=== PATIENT | female | born 1945 | race Caucasian/White ===

== ENCOUNTER → 2018-05-05 | Outpatient (CLI) | payer MEDICARE ==
[~2018-05-05] MED LIST: CALCIUM CARB W/1 TA1 PO; CATAPRES 0.1MG0.1 MG PO; CELEXA; COZAAR100 MG PO; DEPAKOTE 250MG250 MG PO; FORADIL AERO0.012 MG IH; FOSAMAX 70MG TA70 MG PO; KLONOPIN 1MG1 MG PO; MACROBID 1100 MG/CAP PO; NORVASC 10MG10 MG PO; OXYGEN; PRINIVIL5 MG PO; PROVENTIL0.09 MG/A1 IH; REMERON30 MG PO; RISPERDAL3 MG PO; RT SPIRIVA18 MCG IH; XANAX0.25 MG PO
[2018-05-06 00:12] LABS: RHEUMATOID FACTOR-SCREEN <15 IU/mL (0-29)
== END ==
LOC: COL.RAD 03-10 10:46 → COL.LAB 11:14 → COL.RAD 11:14
PROVIDERS: Internal Medicine Pulmonary Disease
DX: J44.9 Chronic obstructive pulmonary disease, unspecified (principal); I51.7 Cardiomegaly; I27.20 Pulmonary hypertension, unspecified; Z98.890 Other specified postprocedural states
CPT/HCPCS: A9539; A9540

== ENCOUNTER → 2020-02-05 | Outpatient (CLI) | payer MEDICARE ==
[2020-02-05 11:01] LABS: BASO # 0.1 (0.0-0.2); EOS # 0.1 (0.0-0.7); EOS % 1.1 % (0-4.0); GRAN # 7.2 (1.4-6.5); GRAN % 65.9 % (42.2-75.2); HEMATOCRIT 43.4 % (37.0-47.0); HEMOGLOBIN 14.2 g/dl (12.5-16.0); LYMPH # 2.2 (1.2-3.4); LYMPH % 20.3 % (20.0-51.0); MEAN CELL VOLUME 90 fl (80.0-100.0); MEAN CORPUSCULAR HEMOGLOBIN 29 pg (27.0-31.0); MEAN CORPUSCULAR HGB CONC 33 g/dl (33.0-37.0); MEAN PLATELET VOLUME 10.7 fl (7.4-10.4); MONO # 1.2 (0.1-0.6); MONO % 11.1 % (1.7-9.3); PLATELET COUNT 409 K/mm3 (130-400); RED BLOOD COUNT 4.85 M/mm3 (4.10-5.30); REDCELL DISTRIBUTION WIDTH-CV 14.1 % (11.5-14.5)
[2020-02-05 11:11] LABS: CALCIUM 9.3 mg/dL (8.4-10.2); CREATININE, serum 0.61 (0.52-1.25); POTASSIUM 4.1 mmol/L (3.4-5.0)
[2020-02-05 11:22] LABS: VALPROIC ACID (DEPAKENE) 51.5 ug/mL (50.0-100.0)
== END ==
LOC: ZCOL.LAB 10:16
PROVIDERS: Internal Medicine
DX: Z51.81 Encounter for therapeutic drug level monitoring (principal); R79.89 Other specified abnormal findings of blood chemistry

== ENCOUNTER → 2020-07-25 | Outpatient (CLI) | payer MEDICARE ==
[2020-07-25 12:33] LABS: COLLECTION METHOD CATHETER
[2020-07-25 12:40] LABS: MUCOUS Present /lpf; PH 5 (5-8); SQUAMOUS EPITHELIAL None Seen /hpf; URINE APPEARANCE Clear; URINE BACTERIA None Seen /hpf; URINE BILIRUBIN Negative (NEGATIVE); URINE BLOOD Negative (NEGATIVE); URINE COLOR Yellow; URINE GLUCOSE 1+ (NEGATIVE); URINE KETONE Trace (NEGATIVE); URINE LEUKOCYTE ESTERASE Negative (NEGATIVE); URINE NITRATE Negative (NEGATIVE); URINE PROTEIN(semi-quant) 1+ (NEGATIVE); URINE RBC 0-2 /hpf; URINE UROBILINOGEN Negative (NEGATIVE)
== END ==
LOC: ZCOL.LAB 11:43
PROVIDERS: Internal Medicine
DX: N39.0 Urinary tract infection, site not specified (principal)

== ENCOUNTER → 2020-08-07 | Outpatient (CLI) | payer MEDICARE ==
[2020-08-07 08:16] LABS: BASO # 0.1 (0.0-0.2); EOS # 0.2 (0.0-0.7); EOS % 2.1 % (0-4.0); GRAN # 6.7 (1.4-6.5); HEMATOCRIT 45.2 % (37.0-47.0); HEMOGLOBIN 14.3 g/dl (12.5-16.0); LYMPH # 1.9 (1.2-3.4); MEAN CELL VOLUME 93 fl (80.0-100.0); MEAN CORPUSCULAR HEMOGLOBIN 29 pg (27.0-31.0); MEAN CORPUSCULAR HGB CONC 32 g/dl (33.0-37.0); MEAN PLATELET VOLUME 11.8 fl (7.4-10.4); MONO # 1.2 (0.1-0.6); MONO % 11.4 % (1.7-9.3); PLATELET COUNT 343 K/mm3 (130-400); RED BLOOD COUNT 4.86 M/mm3 (4.10-5.30); REDCELL DISTRIBUTION WIDTH-CV 14.2 % (11.5-14.5)
[2020-08-07 08:17] LABS: ALBUMIN 3.7 gm/dL (3.5-5.0); BILIRUBIN,TOTAL 0.4 mg/dL (0.0-1.0); CALCIUM 9.1 mg/dL (8.4-10.2); CREATININE, serum 0.6 (0.52-1.25); POTASSIUM 5.2 mmol/L (3.4-5.0); TOTAL PROTEIN 6.5 gm/dL (6.4-8.2)
== END ==
LOC: ZCOL.LAB 07:42
PROVIDERS: Internal Medicine
DX: C82.30 Follicular lymphoma grade IIIa, unspecified site (principal)

== ENCOUNTER 2020-10-27 15:57 | Inpatient (IN) | payer MEDICARE ==
[~2020-10-27] VITALS: Ht 162.6 cm; Wt 60.5 kg
[2020-10-27 16:40] LABS: BASO # 0.1 (0.0-0.2); BASO % 0.7 % (0.0-2.0); EOS # 0.1 (0.0-0.7); EOS % 1.1 % (0-4.0); GRAN # 9.7 (1.4-6.5); GRAN % 78.6 % (42.2-75.2); HEMATOCRIT 38.5 % (37.0-47.0); HEMOGLOBIN 12.5 g/dl (12.5-16.0); LYMPH # 1.3 (1.2-3.4); LYMPH % 10.5 % (20.0-51.0); MEAN CELL VOLUME 90 fl (80.0-100.0); MEAN CORPUSCULAR HEMOGLOBIN 29 pg (27.0-31.0); MEAN CORPUSCULAR HGB CONC 33 g/dl (33.0-37.0); MEAN PLATELET VOLUME 10.5 fl (7.4-10.4); MONO % 8.2 % (1.7-9.3); PLATELET COUNT 293 K/mm3 (130-400); RED BLOOD COUNT 4.26 M/mm3 (4.10-5.30); REDCELL DISTRIBUTION WIDTH-CV 14.3 % (11.5-14.5)
[2020-10-27 16:48] LABS: ALBUMIN 3.7 gm/dL (3.5-5.0); BILIRUBIN,TOTAL 0.4 mg/dL (0.0-1.0); CALCIUM 8.5 mg/dL (8.4-10.2); CREATININE, serum 0.68 (0.52-1.25); POTASSIUM 3.6 mmol/L (3.4-5.0); TOTAL PROTEIN 6.8 gm/dL (6.4-8.2)
[2020-10-27] MEDS ORDERED: ATIVAN 0.50.5 MG/TAB PO (17:02)
[2020-10-27] MEDS ORDERED: AMBIEN 5MG TABLE5 MG PO (17:08)
[2020-10-27 18:53] LABS: COLLECTION METHOD IN
[2020-10-27 19:06] LABS: MUCOUS Present /lpf; PH 6 (5-8); SQUAMOUS EPITHELIAL None Seen /hpf; URINE APPEARANCE Clear; URINE BACTERIA None Seen /hpf; URINE BILIRUBIN Negative (NEGATIVE); URINE BLOOD Negative (NEGATIVE); URINE COLOR Yellow; URINE GLUCOSE Negative (NEGATIVE); URINE KETONE Trace (NEGATIVE); URINE LEUKOCYTE ESTERASE Negative (NEGATIVE); URINE NITRATE Negative (NEGATIVE); URINE PROTEIN(semi-quant) Negative (NEGATIVE); URINE RBC 0-2 /hpf; URINE UROBILINOGEN Negative (NEGATIVE)
[2020-10-27] MEDS ORDERED: ANORO IH (19:37)
[2020-10-27] MEDS ORDERED: ASPIRIN 81M81 MG/TA2 PO (19:38)
[2020-10-27] MEDS ORDERED: BENEFIBER PO (19:45)
[2020-10-27 19:46] LABS: INR 1.1 (0.8-3.0); PROTHROMBIN TIME 12.1 SECONDS (9.7-12.8)
[2020-10-27] MEDS ORDERED: MINIPRESS 1M1 MG/CAP PO (19:46)
[2020-10-27] MEDS ORDERED: MELATIN 3 MG-11 TAB PO (19:46)
[2020-10-27] MEDS ORDERED: TYLENOL 325MG325 MG PO (19:47)
[2020-10-27] MEDS ORDERED: CETRA VITE SENI1 TAB PO (19:48)
[2020-10-27] MEDS ORDERED: PAXIL 20MG20 MG PO (19:49)
[2020-10-27 19:51] LABS: PRE ALBUMIN 19.4 mg/dL (17.6-36.0)
[2020-10-27] MEDS ORDERED: SEROQUEL 1100 MG/TAB PO (19:51)
[2020-10-27] MEDS ORDERED: LOPRESSOR 225 MG/TAB PO (19:52)
[2020-10-27] MEDS ORDERED: DULCOLAX S10 MG/SUPP RC (19:59)
[2020-10-27] MEDS ORDERED: ULTRAM 50MG TAB50 MG PO (19:59)
--- NOTE | 2020-10-27 20:05 | NUR ---
Report obtained from ER nurse. Patient transferred to bed using slideboard. Increased pain with movement. Patient was saturated with urine. Pericare provided & Gleason inserted & Ua to lab. Hospitalist rounded. [facility] called and they faxed med list. Med list updated with list that was faxed, patient unable to verify medications. Mayo to [facility]. Scds. Cms intact. Ivf to [facility] Iv per orders. She remains NPO. Bedside report to Ketty who will resumes care.
[2020-10-27 20:26] VITALS: BP 160/81; PULSE 114; TEMP 97.5
--- NOTE | 2020-10-27 21:08 | NUR ---
Pt s/o anxiety and inability to sleep at this time, HR 120, O2 sat 88& call placed to RT per Charge, O2 increased with face mask, medications given for anxiety and sleep, encoraged patient to take deep breaths and dimmed room lights to decrease anxiety, stayed at patient bedside until O2 sats increased to 95%, RT at bedside adjusted O2 as needed, HR decreased to 105, pain to L hip medicated with Prn Mso4 2mg per Mar with good effects,
--- NOTE | 2020-10-27 22:08 | NUR ---
Call placed to Charisse Toledo- Reported that patient is at rest O2 sat 84-84% on 8L mask, RT aware, woke patient and encouraged deep breathing which increased SPO2 to 90%. See new Orders.
[2020-10-27 22:32] LABS: ARTERIAL BLD GAS O2 SATURATION 93.6 % (92-100); ARTERIAL BLD GAS TCO2 CT 26.5; ARTERIAL BLOOD GAS BASE EXCESS -1.1 (-2-2); ARTERIAL BLOOD GAS PCO2 47.2 mmHg (35-45); ARTERIAL BLOOD GAS PO2 71.8 mmHg (80-100); ARTERIAL BLOOD GAS pH 7.34 (7.35-7.45)
--- NOTE | 2020-10-27 22:48 | NUR ---
Call placed to Charisse Toledo RE: ABG results, current status - sleeping, SPO2 92% 10L O2 per Mask, see new orders.
--- NOTE | 2020-10-27 23:58 | NUR ---
Recieved call from lab - critical D [id number]- [id number]- Call placed to Charisse Toledo notified. See new orders
[2020-10-28 00:05] VITALS: BP 118/59; PULSE 86; TEMP 97.3
[2020-10-28 04:01] VITALS: BP 159/80; PULSE 97; TEMP 97.6
[2020-10-28 07:17] VITALS: BP 160/70; PULSE 95; TEMP 97.9
--- NOTE | 2020-10-28 11:13 | NUR ---
ASSESSMENTS COMPLETE, PT HAS FX LEFT FEMORAL NECK. VISIBLY SWOLLEN. ICE PACK INPLACE. PT HAVING DIFFICULTY MAINTAINING O2 SATS ABOVE 90 %. PT BASELINE ON 2 LPNC FOR UNERLYING COPD. PT REPORTING ANXIETY AND INABLITY TO REST. PT HAS HAD SOME NAUSEA BUT NO EMESIS. OFFERED SPRITE SEVERAL TIMES AND PT REFUSED. PT'S DAUGHTER HERE AND PT HAS DECREASED ANXIETY BUT IS NOW COUGHING. RT NOTIFIED FOR POSSIBLE BREATHING TX.
[2020-10-28 11:34] VITALS: BP 132/87; PULSE 110; TEMP 98.9
--- NOTE | 2020-10-28 11:47 | NUR ---
First visit from the fleet administrator. No needs right now.
--- NOTE | 2020-10-28 13:52 | NUR ---
Traffic Control Specialist met with patient and patient's daughter, Kendra (ph#[phone]) to discuss discharge planning. Patient lives at [facility] and states she has been there about a year. Patient sees Dr. Valles for primary care. Patient states she uses oxygen and a walker and also receives assistance with bathing from the staff at [facility]. SW inquired about DPOA-HC and patient's daughter Kendra provided a copy which designates her as DPOA-HC. SW placed copy on chart. SW spoke with patient and Kendra about discharge planning as post acute rehab will likely be recommended. Kendra would like referrals sent to both [facility] and [facility]. ROXANA left a message for Amarilis at [facility] and faxed referral. ROXANA also contacted [facility] to give referral. ROXANA contacted LORENA Gagnon at [facility] and faxed updates. ROXANA will continue to follow.
--- NOTE | 2020-10-28 15:45 | NUR ---
UP DATED DR. NELSON ON PT STATUS POST SWALLOW EVAL. NEW ORDERS RECIEVED.
[2020-10-28 15:57] VITALS: BP 145/70; PULSE 87; TEMP 98.2
--- NOTE | 2020-10-28 16:15 | NUR ---
PT RESTING QUIETLY IN BED NO COUGHING NOTED AT THIS TIME. RESPERATIONS EVEN AND UNLABORED. PT HAS COPD BASELINE SO RESULTING RESPERATIONS ARE VERY SHALLOW.
--- NOTE | 2020-10-28 19:15 | NUR ---
Pt analytical consultant light frequently stating "this is my bed and I can't go to sleep. I am a nervous wreck. My breathing feels terrible, it would be better if I could just get some rest, I haven't slept. Can you give me something to help me sleep? At [facility] they give me several pills all at once to help me sleep, and even then sometimes I only sleep a few hours".
[2020-10-28 19:19] VITALS: BP 140/81; PULSE 95; TEMP 98.4
--- NOTE | 2020-10-28 19:25 | NUR ---
Scheduled and PRN "psych and anxiety meds" given at this time, pt states she takes all her sleeping and anxiety medications at one time in the evening usually around this time of night. Vitals taken prior to administration, vitals stable and similar to previous vitals
[2020-10-29 00:40] VITALS: BP 128/59; PULSE 98; TEMP 98.7
[2020-10-29 04:55] VITALS: BP 129/69; PULSE 101; TEMP 97.7
[2020-10-29 07:27] VITALS: BP 152/70; PULSE 100; TEMP 98.7
[2020-10-29 08:20] LABS: BASO # 0.1 (0.0-0.2); BASO % 0.3 % (0.0-2.0); EOS # 0.4 (0.0-0.7); GRAN # 15.7 (1.4-6.5); GRAN % 86.3 % (42.2-75.2); HEMOGLOBIN 12.6 g/dl (12.5-16.0); LYMPH % 5.2 % (20.0-51.0); MEAN CELL VOLUME 94 fl (80.0-100.0); MEAN CORPUSCULAR HEMOGLOBIN 30 pg (27.0-31.0); MEAN CORPUSCULAR HGB CONC 32 g/dl (33.0-37.0); MONO # 1.1 (0.1-0.6); MONO % 5.9 % (1.7-9.3); PLATELET COUNT 213 K/mm3 (130-400); RED BLOOD COUNT 4.25 M/mm3 (4.10-5.30); REDCELL DISTRIBUTION WIDTH-CV 14.5 % (11.5-14.5)
[2020-10-29 08:29] LABS: CALCIUM 8.8 mg/dL (8.4-10.2); CREATININE, serum 0.65 (0.52-1.25); POTASSIUM 4.1 mmol/L (3.4-5.0)
--- NOTE | 2020-10-29 09:05 | NUR ---
PT RESTING QUIETLY IN BED. COUGH FROM YESTERDAY APPEARS TO BE RESOLVED. DR. WILCOX IN TO SEE PT. PT TO BE HIGH RISK FOR SURGERY TO LEFT HIP FOR REPAIR OF NONDISPLACED FEMORAL NECK FX.
[2020-10-29 10:43] VITALS: BP 152/70; PULSE 100; TEMP 98
--- NOTE | 2020-10-29 10:59 | NUR ---
PT PREPPEPPED FOR SURGERY, DR HOLLOWAY ON [place] TO SEE PT AND HAS DECIDED TO POSTPONE FOR FURTHER DISCUSSION WITH FAMILY AND POSSIBLE TRANSFER TO [facility].
[2020-10-29 12:36] VITALS: BP 138/63; PULSE 92; TEMP 98.2
--- NOTE | 2020-10-29 13:46 | NUR ---
Patient resting in bed. Requesting a sip of water, reminded her she is NPO. Patient wanting anxiety medication, informed her she can not have any yet. It is not due. Patient provided with incontience care, purwick placed. Scds ble. Tele on. O2 6L via nasal cannual. Patient having nausea. Zofran per orders.
--- NOTE | 2020-10-29 14:01 | NUR ---
Patient to be transferred to a different facility for surgery. SW notified IPR Director Eboni from [facility].
--- NOTE | 2020-10-29 16:25 | NUR ---
REPORT CALLED TO MED. AMBER CARRILLO.
--- NOTE | 2020-10-29 17:11 | NUR ---
PT TRANSFERED BY 9 LINE TO [facility]. REPORT CALLED TO AMBER CARRILLO @ [facility]
== END 2020-10-29 17:12 | disposition critical access hospital (66) | DRG 535 ==
LOC: COL.ER 15:57 → SURG 17:31
PROVIDERS: Nurse Practitioner; Physician Assistant; Student in an Organized Health Care Education/Training Program; ADMIT Internal Medicine
DX: S72.032A Displaced midcervical fracture of left femur, initial encounter for closed fracture (principal); J96.21 Acute and chronic respiratory failure with hypoxia; J69.0 Pneumonitis due to inhalation of food and vomit; J44.9 Chronic obstructive pulmonary disease, unspecified; I10 Essential (primary) hypertension; F41.9 Anxiety disorder, unspecified; F43.10 Post-traumatic stress disorder, unspecified; D72.829 Elevated white blood cell count, unspecified; F32.9 Major depressive disorder, single episode, unspecified; I27.20 Pulmonary hypertension, unspecified; M19.90 Unspecified osteoarthritis, unspecified site; E86.0 Dehydration; R00.0 Tachycardia, unspecified; M81.0 Age-related osteoporosis without current pathological fracture; G47.00 Insomnia, unspecified; Z99.81 Dependence on supplemental oxygen; Z86.73 Personal history of transient ischemic attack (TIA), and cerebral infarction without residual deficits; Z87.891 Personal history of nicotine dependence; Z20.822 Contact with and (suspected) exposure to COVID-19; Z79.82 Long term (current) use of aspirin; Z91.040 Latex allergy status; Z88.8 Allergy status to other drugs, medicaments and biological substances; W19.XXXA Unspecified fall, initial encounter
CPT/HCPCS: 99223-AI; 99233-AI; 99239; A9284; J1940; J2270; J2405; J2543; J3010; J7030; J7512

== ENCOUNTER 2020-12-06 12:29 | Emergency (ER) | payer MEDICARE ==
[~2020-12-06] VITALS: Ht 162.6 cm; Wt 60.5 kg
[2020-12-06 12:29] VITALS: TEMP 98.1
[~2020-12-06 12:29] MED LIST changes: +AMBIEN 5MG TABLE5 MG PO; +ANORO IH; +ASPIRIN 81M81 MG/TA2 PO; +ATIVAN 0.50.5 MG/TAB PO; +BENEFIBER PO; +CETRA VITE SENI1 TAB PO; +DULCOLAX S10 MG/SUPP RC; +LOPRESSOR 225 MG/TAB PO; +MELATIN 3 MG-11 TAB PO; +MINIPRESS 1M1 MG/CAP PO; +PAXIL 20MG20 MG PO; +SEROQUEL 1100 MG/TAB PO; +TYLENOL 325MG325 MG PO; +ULTRAM 50MG TAB50 MG PO
[2020-12-06] MEDS ORDERED: ZOFRAN ODT4 MG PO (12:49)
[2020-12-06] MEDS ORDERED: LASIX 40MG TABL40 MG PO (12:52)
[2020-12-06] MEDS ORDERED: SENNA-S 50 MG-81 TAB PO (12:53)
[2020-12-06] MEDS ORDERED: ANORO IH (12:53)
[2020-12-06] MEDS ORDERED: MILK OF MA400 MG/52 PO (12:55)
[2020-12-06] MEDS ORDERED: ROXICODONE 55 MG/TAB PO (12:57)
[2020-12-06] MEDS ORDERED: IMODIUM 2MG CAPS2 MG PO (12:57)
[2020-12-06 13:07] LABS: BASO # 0.1 (0.0-0.2); BASO % 0.7 % (0.0-2.0); EOS # 0.2 (0.0-0.7); EOS % 1.4 % (0-4.0); GRAN # 8.6 (1.4-6.5); GRAN % 72.8 % (42.2-75.2); HEMATOCRIT 34.5 % (37.0-47.0); HEMOGLOBIN 10.5 g/dl (12.5-16.0); LYMPH # 1.8 (1.2-3.4); LYMPH % 14.9 % (20.0-51.0); MEAN CELL VOLUME 95 fl (80.0-100.0); MEAN CORPUSCULAR HEMOGLOBIN 29 pg (27.0-31.0); MEAN CORPUSCULAR HGB CONC 30 g/dl (33.0-37.0); MEAN PLATELET VOLUME 9.3 fl (7.4-10.4); MONO # 1.2 (0.1-0.6); MONO % 9.8 % (1.7-9.3); PLATELET COUNT 514 K/mm3 (130-400); RED BLOOD COUNT 3.65 M/mm3 (4.10-5.30); REDCELL DISTRIBUTION WIDTH-CV 15.6 % (11.5-14.5)
[2020-12-06 13:19] LABS: ALANINE AMINOTRANSFERASE 12 U/L (4-34); ALKALINE PHOSPHATASE 151 U/L (50-136); ANION GAP 8 mmol/L (7-16); AST,SGOT 18 U/L (15-37); BILIRUBIN,TOTAL < 0.1 mg/dL (0.0-1.0); BLOOD UREA NITROGEN 19 mg/dL (7-17); C-REACTIVE PROTEIN 4.1 mg/dL (0.0-0.9); CALCIUM 8.1 mg/dL (8.4-10.2); CARBON DIOXIDE 35 mmol/L (22-30); CHLORIDE 94 mmol/L (98-107); CREATININE, serum 0.79 (0.52-1.25); GLUCOSE 119 mg/dL (74-106); POTASSIUM 3.6 mmol/L (3.4-5.0); SODIUM 137 mmol/L (137-145); TOTAL PROTEIN 6.1 gm/dL (6.4-8.2)
[2020-12-06 18:50] VITALS: BP 161/70; PULSE 74
== END 2020-12-06 18:50 | disposition short-term general hospital (02) ==
LOC: COL.ER 12:29
PROVIDERS: Family Medicine
DX: S72.002A Fracture of unspecified part of neck of left femur, initial encounter for closed fracture (principal); I10 Essential (primary) hypertension; J44.9 Chronic obstructive pulmonary disease, unspecified; G47.00 Insomnia, unspecified; F41.9 Anxiety disorder, unspecified; Z87.891 Personal history of nicotine dependence; Z96.642 Presence of left artificial hip joint; Z91.040 Latex allergy status; Z79.82 Long term (current) use of aspirin

== ENCOUNTER → 2021-08-04 | Outpatient (CLI) | payer MEDICARE ==
[~2021-08-04] MED LIST changes: +IMODIUM 2MG CAPS2 MG PO; +LASIX 40MG TABL40 MG PO; +MILK OF MA400 MG/52 PO; +ROXICODONE 55 MG/TAB PO; +SENNA-S 50 MG-81 TAB PO; +ZOFRAN ODT4 MG PO
[2021-08-04 15:56] LABS: BASO # 0.1 K/mm3 (0.0-0.2); BASO % 1.1 % (0.0-2.0); EOS # 0.3 K/mm3 (0.0-0.7); GRAN # 7.1 K/mm3 (1.4-6.5); GRAN % 72.4 % (42.2-75.2); HEMOGLOBIN 11.8 g/dl (12.5-16.0); LYMPH # 1.4 K/mm3 (1.2-3.4); LYMPH % 14.4 % (20.0-51.0); MEAN CELL VOLUME 90 fl (80.0-100.0); MEAN CORPUSCULAR HEMOGLOBIN 29 pg (27.0-31.0); MEAN CORPUSCULAR HGB CONC 32 g/dl (33.0-37.0); MEAN PLATELET VOLUME 9.6 fl (7.4-10.4); MONO # 0.9 K/mm3 (0.1-0.6); MONO % 8.6 % (1.7-9.3); PLATELET COUNT 338 K/mm3 (130-400); RED BLOOD COUNT 4.11 M/mm3 (4.10-5.30); REDCELL DISTRIBUTION WIDTH-CV 14.6 % (11.5-14.5)
[2021-08-04 16:15] LABS: ALBUMIN 3.7 gm/dL (3.4-4.8); BILIRUBIN,TOTAL 0.2 mg/dL (0.2-1.2); C-REACTIVE PROTEIN 0.32 mg/dL (0.00-0.50); CALCIUM 8.6 mg/dL (8.4-10.2); CREATININE, serum 1.07 mg/dL (0.57-1.11); POTASSIUM 4.2 mmol/L (3.5-4.5); TOTAL PROTEIN 7.1 gm/dL (6.2-8.1)
== END ==
LOC: COL.LAB 15:22
PROVIDERS: Internal Medicine Infectious Disease
DX: T84.52XD Infection and inflammatory reaction due to internal left hip prosthesis, subsequent encounter (principal); Z92.29 Personal history of other drug therapy

== ENCOUNTER 2021-11-13 12:57 | Emergency (ER) | payer MEDICARE, MEDICAID ==
[~2021-11-13] VITALS: Ht 162.6 cm; Wt 55.9 kg
[2021-11-13 13:05] VITALS: TEMP 98.5
[2021-11-13 14:20] VITALS: BP 189/88; PULSE 84
--- NOTE | 2021-11-13 14:43 | NUR ---
green chain worker met with patient and daughter, Kendra regarding patient's desire to move to [facility] as she can smoke there. Worker contacted Diane at [facility] and faxed clinical information. Patient has medicaid [place] that would be the payer source for prison care. Patient's plan is to discharge home with daughter and await [facility]'s screen for possible placement next week. Worker contacted Dr Valles's social work professor (Cecille) and advised of the above information and plan. Cecille stated that she will call daughter and patient on Tuesday to continue plans for [place] [facility] [place]. Patient and spouse both verbalize difficulty with their relationship at home. Worker collaborated with patient's nurse and physician regarding above information.
== END 2021-11-13 14:20 | disposition home or self-care (01) ==
LOC: COL.ER 12:57
DX: Z63.9 Problem related to primary support group, unspecified (principal); Z87.891 Personal history of nicotine dependence; Z91.040 Latex allergy status

== ENCOUNTER → 2021-12-16 | Outpatient (CLI) | payer MEDICARE, MEDICAID ==
[2021-12-16 15:01] LABS: BASO # 0.1 K/mm3 (0.0-0.2); BASO % 1.1 % (0.0-2.0); EOS # 0.3 K/mm3 (0.0-0.7); GRAN # 6.2 K/mm3 (1.4-6.5); GRAN % 64.9 % (42.2-75.2); HEMATOCRIT 36.7 % (37.0-47.0); HEMOGLOBIN 11.6 g/dl (12.5-16.0); LYMPH % 20.7 % (20.0-51.0); MEAN CELL VOLUME 89 fl (80.0-100.0); MEAN CORPUSCULAR HEMOGLOBIN 28 pg (27-31); MEAN CORPUSCULAR HGB CONC 32 g/dl (33.0-37.0); MEAN PLATELET VOLUME 9.6 fl (7.4-10.4); PLATELET COUNT 358 K/mm3 (130-400); RED BLOOD COUNT 4.14 M/mm3 (4.10-5.30); REDCELL DISTRIBUTION WIDTH-CV 14.1 % (11.5-14.5)
[2021-12-16 15:41] LABS: ALBUMIN 3.5 gm/dL (3.4-4.8); BILIRUBIN,TOTAL 0.2 mg/dL (0.2-1.2); CREATININE, serum 0.99 mg/dL (0.57-1.11); POTASSIUM 4.2 mmol/L (3.5-4.5); TOTAL PROTEIN 6.7 gm/dL (6.2-8.1)
== END ==
LOC: COL.LAB 14:00
PROVIDERS: Internal Medicine Infectious Disease
DX: T84.52XD Infection and inflammatory reaction due to internal left hip prosthesis, subsequent encounter (principal); Z92.29 Personal history of other drug therapy

== ENCOUNTER 2022-06-22 10:34 | Emergency (ER) | payer MEDICARE, MEDICAID ==
[~2022-06-22] VITALS: Ht 162.6 cm; Wt 55.9 kg
--- NOTE | 2022-06-22 07:44 | NUR ---
Initial visit; Patient unmanageable and acting out to her daughter Kendra. Banquet Lead was called by Social Work to dental insurance biller to Kendra and other Caregivers. Issues with Mandi not responding to care being offered by daughter and various facilities where she has lived. Banquet Lead eventually explained how Dementia/Alzheimers may work and seems to be the case with Mandi. Kendra thanked Banquet Lead for listening and talking with her. Banquet Lead also offered prayer and to be available in her office when she needs a listening ear.
[2022-06-22 10:38] VITALS: TEMP 98
[2022-06-22 10:59] LABS: BASO # 0.2 K/mm3 (0.0-0.2); EOS # 0.1 K/mm3 (0.0-0.7); EOS % 1.6 % (0.0-4.0); GRAN # 6.2 K/mm3 (1.4-6.5); GRAN % 69.1 % (42.2-75.2); HEMOGLOBIN 11.4 g/dl (12.5-16.0); LYMPH # 1.6 K/mm3 (1.2-3.4); LYMPH % 17.7 % (20.0-51.0); MEAN CELL VOLUME 88 fl (80.0-100.0); MEAN CORPUSCULAR HEMOGLOBIN 29 pg (27-31); MEAN CORPUSCULAR HGB CONC 33 g/dl (33.0-37.0); MEAN PLATELET VOLUME 9.1 fl (7.4-10.4); MONO # 0.9 K/mm3 (0.1-0.6); MONO % 9.4 % (1.7-9.3); PLATELET COUNT 584 K/mm3 (130-400); RED BLOOD COUNT 3.98 M/mm3 (4.10-5.30); REDCELL DISTRIBUTION WIDTH-CV 14.7 % (11.5-14.5)
[2022-06-22 11:07] LABS: PROTHROMBIN TIME 11.3 SECONDS (9.7-12.8)
[2022-06-22 11:10] LABS: PARTIAL THROMBOPLASTIN TIME 34.7 SECONDS (26.0-37.0)
[2022-06-22 11:45] LABS: ALANINE AMINOTRANSFERASE 17 U/L (0-55); ALBUMIN 3.4 gm/dL (3.4-4.8); ALKALINE PHOSPHATASE 128 U/L (40-150); ANION GAP 11 mmol/L (7-16); AST,SGOT 27 U/L (5-34); BILIRUBIN,TOTAL 0.5 mg/dL (0.2-1.2); BLOOD UREA NITROGEN 20 mg/dL (10-20); CALCIUM 9.5 mg/dL (8.4-10.2); CARBON DIOXIDE 26 mmol/L (23-31); CHLORIDE 95 mmol/L (98-107); CREATININE, serum 0.87 mg/dL (0.57-1.11); GLUCOSE 120 mg/dL (70-99); POTASSIUM 4.3 mmol/L (3.5-4.5); SODIUM 132 mmol/L (136-145)
[2022-06-22 11:53] LABS: TROPONIN-I < 0.010 ng/mL (0.00-0.033)
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
--- NOTE | 2022-06-22 14:57 | NUR ---
Jem with [facility] called stating that they are unable to accept this patient due to not being able to meet her needs. Tomasa with [facility] called stating that they should be able to accept this patient, however they are needing 3 months worth of bank statements which she has left a message with the patients daughter for. She also states that their DON is in a meeting until 1600 today and she will not have an answer until she is able to speak with her DON.
--- NOTE | 2022-06-22 16:46 | NUR ---
Tomasa with [facility] called stating that she got ahold of the patients daughter, but would not be able to get ahold of the bank statements until tomorrow. statement clerks supervisor notified.
[2022-06-23 14:12] VITALS: BP 181/103; PULSE 85
--- NOTE | 2022-06-23 15:23 | NUR ---
log raft worker met with patient and also spoke with daughter, Kendra. Kendra states that patient has a history of moving into a facility and then feeling that she needs to move someone else. [facility] declines patient. Worker contacted Dr Zhang's nurse, Fouzia, and advised of hospitalization and need for their office to continue and work with patient for snf placement. Patient and daughter are open to securing long term care administrator care and working with Dr Zhang's office to assist. Patient states she does not want to go back to daughter's home. Worker collaborated with patient's nurse and physician, Dr Cruz regarding the above information. Worker provided patient with Medicare.gov share for home health and snf options.
--- NOTE | 2022-06-24 15:08 | NUR ---
Referral resent to to Blane at [facility]. SW contacted Alie at [facility] to inform of the situation and current status.
== END 2022-06-23 14:12 | disposition home or self-care (01) ==
LOC: COL.ER 10:34
PROVIDERS: Family Medicine
DX: R07.89 Other chest pain (principal); F03.90 Unspecified dementia, unspecified severity, without behavioral disturbance, psychotic disturbance, mood disturbance, and anxiety; F17.200 Nicotine dependence, unspecified, uncomplicated; J44.9 Chronic obstructive pulmonary disease, unspecified; Z99.81 Dependence on supplemental oxygen; Z91.040 Latex allergy status
CPT/HCPCS: J1790